=== PATIENT | female | born 1995 | race Caucasian/White ===

== ENCOUNTER 2020-01-13 10:30 | Emergency (ER) | payer OTHER, SELFPAY ==
[2020-01-13] VITALS (15 sets, daily range): BP systolic 110–142; BP diastolic 61–93; PULSE 86–124; RESP 10–30; TEMP 36.6; O2SAT 98–100
--- NOTE | ~2020-01-13 | XR_ITS ---
EXAMINATION: XR chest 1V portable DATE: 01/13/2020 11:32 INDICATION: Cough and shortness of breath. TECHNIQUE: A single frontal view of the chest was obtained. COMPARISON: Chest 2 views 03/19/2017 FINDINGS: There is a cavitary mass at the junction of right mid and upper lung zones. No pleural effu rekha or pneumothorax. The heart size is normal. IMPRESSION: 1. Cavitary mass in right lung, which may be infection or malignancy. Chest CT is recommended. Reviewed, dictated and finalized at location [facility]. [employer]ICE [employer]IDENT
--- NOTE | ~2020-01-13 | CT_ITS ---
EXAMINATION: CTA chest PE protocol DATE: 01/13/2020 12:12 INDICATION: Dyspnea, tachypnea. Right lung pain with inspiration. TECHNIQUE: Computed tomography angiography (CTA) of the chest was performed with 100 mL Omnipaque-350 intravenous contrast timed to evaluate the pulmonary arteries. Coronal maximum intensity projection 3D-reconstructions were created by the technologist. Automated exposure control and iterative reconst ruction technique were employed. Exam dose: 174.73 mGy-cm total exam DLP. COMPARISON: 01/23/2020 portable AP chest 03/19/2017 PA and lateral chest FINDINGS: There is moderate enhancement of the pulmonary arteries and no evidence of pulmonary emboli sm. There is a 4 cm thick-walled cavitary lesion in the posterior segment of the right upper lobe, with s urrounding infiltrate. Emphysematous changes are noted in the bilateral lung apices. Normal heart size. No enlarged hilar or mediastinal lymph nodes. No thoracic aortic aneurysm or dissection. Normal heart size. No pericardial or pleural effusion. Normal adrenal glands. Included upper abdominal structures are unremarkable. IMPRESSION: 4 cm thick-walled cavitary lesion of the posterior segment of the right upper lobe with surrounding patchy infiltrate. Infection is considered most likely but neoplasm is not excluded. Cons ider bronchoscopic or CT-guided percutaneous needle biopsy. No evidence of pulmonary embolism Mild emphysematous changes Reviewed, dictated and finalized at [facility]. Reviewed, dictated and finalized at location [facility]. [employer] IMPRESSION: 4 cm thick-walled cavitary lesion of the posterior segment of the right upper lobe with surrounding patchy infiltrate. Infection is considered mo st likely but neoplasm is not excluded. Consider bronchoscopic or CT-guided per cutaneous needle biopsy. No evidence of pulmonary embolism Mild emphysematous changes
[2020-01-13 11:02] LABS: Add Urine Microscopic? YES; Appearance Urine Clear (Clear); Bilirubin Urine Negative (Negative); Blood Urine 3+ (Negative); Color Urine Yellow (Yellow); Glucose Urine UA Negative (Negative); Ketones Urine Negative (Negative); Leukocyte Esterase Ur Negative LEU/UL (Negative); Mucus Urine Rare /lpf; Nitrate Urine Negative (Negative); Protein Urine 1+ mg/dL (Negative); RBC Urine >75 /hpf (0-2); Specific Grav Ur 1.026 (1.001-1.035); Squamous Epithelial Cell Urine Few /hpf (Few)
[2020-01-13 11:23] LABS: Basophils Percent Auto 0.2 % (0.2-1.2); Eosinophils Percent Auto 0.2 % (0-4.4); Hematocrit 38.7 % (37.0-47.0); Hemoglobin 13.9 g/dL (12.0-15.0); Immature Granulocyte Absolute 0.03 K/mm3 (0.00-0.031); Immature Granulocyte Percent A 0.2 % (0-0.5); Lymphocytes Absolute Auto 1.59 K/mm3 (0.9-3.2); Lymphocytes Percent Auto 12.2 % (18.3-44.2); Mean Corpuscular HGB Conc 35.9 g/dl (32-36); Mean Corpuscular Hemoglobin 33.2 pg (26-34); Mean Corpuscular Volume 92.4 fl (80-100); Mean Platelet Volume 11.7 fl (7.4-10.4); Monocytes Percent Auto 7.9 % (2.6-8.5); Neutrophils Absolute Auto 10.3 K/mm3 (1.3-6.7); Neutrophils Percent Auto 79.3 % (45.5-73.1); Platelet Count Result 163 k/mm3 (150-375); Red Blood Count 4.19 M/mm3 (4.2-5.4); Red Cell Distribution Width 11.8 % (11.5-14.5)
[2020-01-13 11:36] LABS: D Dimer 0.55 ug/mL (<0.48)
[2020-01-13 11:37] LABS: Alanine Aminotransferase 11 U/L (4-35); Albumin Level 3.8 g/dL (3.5-5.1); Alkaline Phosphatase 61 U/L (38-126); Anion Gap 7 mmol/L (8-16); Aspartate Amino Transferase 15 U/L (14-36); Bilirubin,Total 0.4 mg/dL (0.2-1.3); Blood Urea Nitrogen 11 mg/dL (7-17); Carbon Dioxide 23 mmol/L (22-30); Chloride 109 mmol/L (98-107); Estimated CRCL calculation 117 ml/min; Estimated Glomerular Filt Rate > 60; Glucose 103 mg/dL (65-105); Potassium 3.8 mmol/L (3.4-5.0); Sodium 139 mmol/L (137-145)
[2020-01-13 12:17] LABS: Monoscreen Negative (Negative); Negative Monotest Control Negative (Negative); Positive Monotest Control Positive (Positive)
[2020-01-13] MEDS: KETOROLAC 15 MG/ML VIAL (*BKC) IV PUSH (13:33)
--- NOTE | 2020-01-13 13:37 | ED.GENADULT ---
HPI - General Adult General Chief complaint: Upper Respiratory Infection Stated complaint: cough, runny nose, pain in r lung Time Seen by Provider: 01/13/20 10:39 Source: patient Mode of arrival: ambulatory Limitations: no limitations History of Present Illness HPI narrative: Patient presents with chief complaint of intermittent low-grade fevers, cough productive of brown sputum, fatigue that has been occurring since December 25. Patient states on December 25 she saw her primary care and was tested for Covid which came back negative on December 28. Patient states at that time she was prescribed a Z-Mark, steroids and promethazine which helped her feel better through the . Patient states last week she began noticing that her symptoms represented. She states the brown sputum began in 2-3 times she has noticed some flecks of blood in it but has not been vomiting with it. She reports pain to the right side of her lungs with breathing. She states the pain makes her feel as if she is short of breath. Patient states she has not had abdominal pain vomiting or diarrhea. Related Data Home Medications Medication Instructions Recorded Confirmed PNV cmb#95-ferrous fumarate-FA 1 tablet PO DAILY 01/09/19 01/22/19 [] Allergies Allergy/AdvReac Type Severity Reaction Status Date / Time No Known Allergies Allergy Verified 03/18/17 18:09 Review of Systems Review of Systems: Narrative: CONSTITUTIONAL: Reports fatigue and intermittent low-grade fever, chills, and sweats. EYES: Denies visual changes, redness, or discharge. ENT: Denies rhinorrhea, congestion, sore throat, or otalgia. CARDIOVASCULAR: Denies chest pain, palpitations, or edema. RESPIRATORY: Reports cough, right-sided lung pain or dyspnea. GASTROINTESTINAL: Denies abdominal pain, nausea, vomiting, or diarrhea. GENITOURINARY: Denies dysuria or hematuria. SKIN: Denies rash or itching. MUSCULOSKELETAL: Denies back pain, joint pain, or myalgia. NEUROLOGIC: Denies headache, numbness, dizziness, or weakness. PSYCHIATRIC: Denies anxiety or depression. [facility] Social History Social History (Updated 01/13/20 @ 14:14 by Werner Downing PA-C) Smoking status: Current every day smoker Tobacco type: cigarettes Substance use: current Substance use type: marijuana Living arrangements: with family Gender identity (if verbalized by the patient): Female Exam Narrative: Exam Narrative: GENERAL: Patient appears slightly pale and ill but does not appear to be in emergent acute distress. HEAD: Normocephalic, atraumatic. EYES: PERRLA and EOMI. ENT: Nares clear, no rhinorrhea or epistaxis. Mucous membranes moist. NECK: Supple. No adenopathy or masses. No carotid bruits or JVD CHEST: Clear to auscultation. No respiratory distress. No wheezes rales or rhonchi HEART: Tachycardic rate and rhythm. No murmur heard. Normal peripheral pulses. EXTREMITIES: Normal range of motion. No edema. SKIN: Warm, dry, no rash. NEURO: No focal deficits. Alert and oriented x3. PSYCH: Normal mood and affect. Course Vital Signs Vital signs: Vital Signs Temperature 98 F 01/13/20 10:36 Pulse Rate 111 H 01/13/20 10:36 Respiratory Rate 22 H 01/13/20 10:36 Blood Pressure 142/88 H 01/13/20 10:36 Pulse Oximetry 98 01/13/20 10:36 Temperature 98 F 01/13/20 10:36 Pulse Rate 108 H 01/13/20 12:46 Respiratory Rate 16 01/13/20 12:46 Blood Pressure 126/80 01/13/20 12:46 Pulse Oximetry 98 01/13/20 12:46 Medical Decision Making MDM Narrative Medical decision making narrative: Consult with director of revenue Dr. Munoz who wants the patient to be started on vancomycin, Levaquin and imipenem. He states he does like a sputum culture and the patient to be admitted to the medical floor for IV antibiotics and CT-guided biopsy. Also with the hospitalist who is in agreement with plan. The patient is still maintaining oxygenation at 98% on room air. Prior v
[2020-01-13 14:25] LABS: Lactic Acid Reflex 0.7 mmol/L (0.7-2.1)
--- NOTE | 2020-01-13 15:12 | PC.NURSE ---
Pt wanting to be admitted, but is having trouble finding someone to watch her daughter.
--- NOTE | 2020-01-13 16:26 | PC.NURSE ---
Pt decided she could not stay. She will finish her antibiotic in ER and be discharged
[2020-01-13 18:51] LABS: SARS-CoV-2 RNA PCR Negative
[2020-01-16 19:14] LABS: NIL 0.03 IU/mL; Quantiferon TB Plus, 1T NEGATIVE (NEGATIVE)
== END 2020-01-13 18:45 | disposition left against medical advice (07) ==
PROVIDERS: Physician Assistant; Emergency Provider Emergency Medicine; PCP Nurse Practitioner Family
DX: R91.8 Other nonspecific abnormal finding of lung field (principal); Z20.828 Contact with and (suspected) exposure to other viral communicable diseases; F17.210 Nicotine dependence, cigarettes, uncomplicated
CPT/HCPCS: 36415; 71045; 71275; 80053; 81001; 81025; 83605; 85025; 85380; 86308; 86480; 87040; 87070; 87081; 87205; 87635; 87804; 87880; 96365; 96366; 96367; 96375; 99284; C9803; J1885; J1956; J3370; Q9967; U0003

== ENCOUNTER 2020-01-16 14:43 | Outpatient (CLI) | payer OTHER, SELFPAY ==
[2020-01-16 15:22] LABS: Basophils Percent Auto 0.2 % (0.2-1.2); Eosinophils Percent Auto 0.2 % (0-4.4); Hematocrit 39.6 % (37.0-47.0); Hemoglobin 13.9 g/dL (12.0-15.0); Immature Granulocyte Percent A 0.8 % (0-0.5); Lymphocytes Absolute Auto 1.64 K/mm3 (0.9-3.2); Lymphocytes Percent Auto 12.5 % (18.3-44.2); Mean Corpuscular HGB Conc 35.1 g/dl (32-36); Mean Corpuscular Volume 91.2 fl (80-100); Mean Platelet Volume 11.6 fl (7.4-10.4); Monocytes Percent Auto 7.9 % (2.6-8.5); Neutrophils Absolute Auto 10.3 K/mm3 (1.3-6.7); Neutrophils Percent Auto 78.4 % (45.5-73.1); Platelet Count Result 232 k/mm3 (150-375); Red Blood Count 4.34 M/mm3 (4.2-5.4); Red Cell Distribution Width 11.8 % (11.5-14.5); White Blood Count 13.2 K/mm3 (4.5-10.0)
== END 2020-01-16 14:44 | disposition home or self-care (01) ==
LOC: ANHLAB 14:44
PROVIDERS: PCP Nurse Practitioner Family; Visit Provider Internal Medicine Critical Care Medicine
DX: J18.9 Pneumonia, unspecified organism (principal)
CPT/HCPCS: 36415; 85025